=== PATIENT | female | born 1990 | race Caucasian/White ===

== ENCOUNTER 2017-05-25 23:12 | Emergency (ER) | payer SELFPAY ==
--- NOTE | 2017-05-25 23:55 | ER ---
Nurse's Notes [facility] Name: Kyle Montoya Age: 26 yrs Sex: Female : 1990 Arrival Date: 05/25/2017 Time: 23:18 Bed 14 Private MD: Diagnosis: Laceration without foreign body of left index finger with damage to nail Presentation: 05/25 23:32 Presenting complaint: Patient states: "I chopped off the tip of my left index finger tc3 this morning about 10:30". Transition of care: patient was not received from another setting of care. Complicating Factors: There are no complicating factors for this patient. Onset of symptoms was May 25, 2017 at 10:30. Care prior to arrival: Pt cleaned wound with soap \\T\\ water then Peroxide, applied pressure to control bleeding then applied Neosporin and dressing. 23:32 Method Of Arrival: Ambulatory tc3 23:32 Acuity: AGUILAR 4 tc3 Triage Assessment: 23:42 General: Appears in no apparent distress. comfortable, well groomed, well developed, tc3 well nourished, Behavior is calm, cooperative. Pain: Complains of pain in left hand Pain currently is 4 out of 10 on a pain scale. Quality of pain is described as gnawing. EENT: No deficits noted. No signs and/or symptoms were reported regarding the EENT system. Neuro: No deficits noted. Level of Consciousness is awake, alert, obeys commands, Oriented to person, place, time, situation. Cardiovascular: No deficits noted. Reports None Heart tones S1 S2 present Capillary refill is brisk in bilateral fingers Patient's skin is warm and dry. Respiratory: No deficits noted. Airway is patent Respiratory effort is even, unlabored, Respiratory pattern is regular, symmetrical, Breath sounds are clear bilaterally. GI: No deficits noted. No signs and/or symptoms were reported involving the gastrointestinal system. : No deficits noted. No signs and/or symptoms were reported regarding the genitourinary system. Derm: No deficits noted. No signs and/or symptoms reported regarding the dermatologic system. Skin is healthy with good turgor, Skin is pink, warm \\T\\ dry. Musculoskeletal: No deficits noted. No signs and/or symptoms reported regarding the musculoskeletal system. Circulation, motion, and sensation intact. Range of motion: intact in all extremities. Injury Description: Laceration sustained to left index finger is clean, tip of finger missing was sustained 12-24 hours ago. 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 - Social history:: Smoking status: Patient uses tobacco products, smokes one pack cigarettes per day. Patient/guardian denies using alcohol, street drugs. Screenin:46 Abuse screen: Denies threats or abuse. Denies injuries from another. Nutritional tc3 screening: No deficits noted. Tuberculosis screening: No symptoms or risk factors identified. Fall Risk None identified. Assessment: 23:50 General: refer to triage assessment by me. tc3 05/26 00:33 Reassessment: Patient appears in no apparent distress at this time. Patient and/or tc3 family updated on plan of care and expected duration. Pain level reassessed. Patient is alert, oriented x 3, equal unlabored respirations, skin warm/dry/pink. dressing CDI. Vital Signs: 05/25 23:45 BP 117 / 78; Pulse 85; Resp 20; Temp 98.7; Pulse Ox 100% ; Weight 77.11 kg; Pain 4/10; tc3 05/26 00:30 BP 108 / 81; Pulse 82; Resp 16; Pulse Ox 100% ; Pain 2/10; tc3 ED Course: 05/25 23:18 Patient arrived in ED. ds1 23:35 Allen Arauz MD is Attending Physician. gs 23:37 Apple Gutierrez RN is Primary Nurse. tc3 23:39 Triage completed. tc3 23:45 Arm band placed on right wrist. tc3 23:46 Patient has correct armband on for positive identification. Bed in low position. Call tc3 light in reach. Side rails up X 1. Verbal reassurance given. 23:46 No provider procedures requiring assistance completed. Patient did not have IV access tc3 during this emergency room visit. 05/26 00:25 Wound care: to laceration located on left index finger was cleaned with Hibiclens, tc3 irrigated with normal saline, dressed with Neosporin, 4X4s, tube gauze, Patient tolerated well. 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 Exp: tc3 07/18/2019. Lot #: [id number]. } Route: IM; Site: right deltoid; 05/26 00:34 Follow up: Response: No adverse reaction; No change in condition tc3 Outcome: 05/25 23:55 Discharge ordered by . ke 03 00:34 Discharged to home ambulatory. tc3 Condition: good Discharge instructions given to patient, Instructed on discharge instructions, follow up and referral plans. wound care, Demonstrated understanding of instructions, follow-up care, wound care, Prescriptions given X 0 00:37 Patient left the ED. tc3 Signatures: Meme Esparza ds1 Apple Gutierrez RN RN tc3 Allen Arauz MD MD gs
--- NOTE | 2017-05-25 23:55 | EDPHYS ---
Physician Documentation [facility] Name: Kyle Montoya Age: 26 yrs Sex: Female : 1990 Arrival Date: 05/25/2017 Time: 23:18 Bed 14 Private MD: ED Physician Allen Arauz HPI: 05/25 23:52 This 26 yrs old Female presents to ER via Ambulatory with complaints of gs Laceration - Sliced Tip of Fingers. 23:52 The patient or guardian reports a laceration, clean. The complaints affect the left gs index fingernail. Context: The problem was sustained at work, resulted from cutting marcela. Onset: The symptoms/episode began/occurred acutely, today. Associated signs and symptoms: Pertinent negatives: numbness distally. Severity of symptoms: At their worst the symptoms were moderate, in the emergency department the symptoms are unchanged. 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 - Social history:: Smoking status: Patient uses tobacco products, smokes one pack cigarettes per day. Patient/guardian denies using alcohol, street drugs. ROS: 23:52 All other systems are negative. gs Exam: 23:52 Musculoskeletal/extremity: ROM: no acute changes, Circulation is intact in all gs extremities. Sensation intact. oblique laceration left index tip, involve part of nail, avulsion of fingertip. Vital Signs: 23:45 BP 117 / 78; Pulse 85; Resp 20; Temp 98.7; Pulse Ox 100% ; Weight 77.11 kg; Pain 4/10; tc3 05/26 00:30 BP 108 / 81; Pulse 82; Resp 16; Pulse Ox 100% ; Pain 2/10; tc3 MDM: 05/25 23:42 Patient medically screened. gs 23:52 Data reviewed: vital signs, nurses notes, and as a result, I will discharge patient. 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 Exp: tc3 07/18/2019. Lot #: [id number]. } Route: IM; Site: right deltoid; 05/26 00:34 Follow up: Response: No adverse reaction; No change in condition tc3 Disposition: 05/25/17 23:55 Discharged to Home. Impression: Laceration without foreign body of left index finger with damage to nail. - Condition is Stable. - Discharge Instructions: Laceration Care, Adult. - Medication Reconciliation Form, Thank You Letter, Antibiotic Education, Prescription Opioid Use form. - Follow up: Private Physician; When: 2 - 3 days; Reason: Re-evaluation by your physician. Signatures: Apple Gutierrez RN RN tc3 Allen Arauz MD MD
[2017-05-26] MEDS ORDERED: TETANUS & DIPHTHERIA TOX,ADULT 0.5 ML VIAL ONE (00:08)
== END 2017-05-26 00:37 | disposition home or self-care (01) ==
LOC: ER 23:12
DX: S61.311A Laceration without foreign body of left index finger with damage to nail, initial encounter (principal); W26.0XXA Contact with knife, initial encounter; Y93.89 Activity, other specified; Y92.89 Other specified places as the place of occurrence of the external cause; Z23 Encounter for immunization; F17.210 Nicotine dependence, cigarettes, uncomplicated
CPT/HCPCS: 90714; 99284